=== PATIENT | female | born 1960 | race Caucasian/White ===

== ENCOUNTER 2017-03-31 13:05 | Emergency (ER) | payer BC ==
--- NOTE | 2017-03-31 17:34 | RAD ---
THREE VIEWS OF THE LEFT FOOT INDICATION: Rule out foreign body in the mid-foot. FINDINGS: No acute fracture or subluxation is evident. No definite radiopaque foreign body is noted. There is soft tissue swelling surrounding the forefoot. IMPRESSION: Soft tissue swelling without radiopaque foreign body. POS: [facility]
== END 2017-03-31 17:17 | disposition home or self-care (01) ==
LOC: MADERS 13:05
DX: M25.572 Pain in left ankle and joints of left foot (principal); Z79.891 Long term (current) use of opiate analgesic; Z79.899 Other long term (current) drug therapy

== ENCOUNTER 2017-04-02 11:46 | Emergency (ER) | payer BC ==
[2017-04-02] MEDS ORDERED: Adacel (T-DAP) 0.5 ML VIAL ONE (14:03)
== END 2017-04-02 14:21 | disposition home or self-care (01) ==
LOC: MADERS 11:46
DX: L03.032 Cellulitis of left toe (principal); G89.29 Other chronic pain; F32.9 Major depressive disorder, single episode, unspecified; F17.210 Nicotine dependence, cigarettes, uncomplicated; Z79.891 Long term (current) use of opiate analgesic; Z79.899 Other long term (current) drug therapy
CPT/HCPCS: 90471; 90715

== ENCOUNTER 2017-11-21 10:40 | Emergency (ER) | payer BC ==
[2017-11-21] MEDS ORDERED: Dexamethasone 4 MG TAB ONE (12:51)
[2017-11-21] MEDS ORDERED: Acetaminophen 500 MG TAB ONE (12:51)
[2017-11-21] MEDS ORDERED: Famotidine 20 MG TAB ONE (12:51)
== END 2017-11-21 13:10 | disposition home or self-care (01) ==
LOC: MADERS 10:40
DX: M19.011 Primary osteoarthritis, right shoulder (principal); F32.9 Major depressive disorder, single episode, unspecified; F17.210 Nicotine dependence, cigarettes, uncomplicated; Z79.899 Other long term (current) drug therapy
CPT/HCPCS: 99283; J8540

== ENCOUNTER 2018-02-20 08:21 | Emergency (ER) | payer BC ==
--- NOTE | 2018-02-20 09:10 | RAD ---
RADIOGRAPH LEFT SHOULDER THREE VIEWS: Date: 02-20-18 History: 57-year-old female with left shoulder pain for three days without trauma. FINDINGS: No fracture or dislocation. Grade II AC joint sprain, with mild to moderate degenerative changes. Nor mal appearance of the glenohumeral joint. No HADD calcification. IMPRESSION: 1. Grade II acromioclavicular joint sprain of unknown age. 2. 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 POS: [facility]
== END 2018-02-20 09:38 | disposition home or self-care (01) ==
LOC: MADERS 08:21
DX: S43.402A Unspecified sprain of left shoulder joint, initial encounter (principal); M19.90 Unspecified osteoarthritis, unspecified site; F32.9 Major depressive disorder, single episode, unspecified; F17.210 Nicotine dependence, cigarettes, uncomplicated; Z79.899 Other long term (current) drug therapy; X50.1XXA Overexertion from prolonged static or awkward postures, initial encounter
CPT/HCPCS: 93005

== ENCOUNTER 2018-05-22 11:27 | Emergency (ER) | payer BC ==
[2018-05-22] MEDS ORDERED: Morphine 4 MG/ML VIAL ONE (11:55)
[2018-05-22 11:56] LABS: Bilirubin Negative (Negative); Blood, Urine Negative (Negative); Clarity Slightly Cloudy (Clear); Glucose, Urine (Dipstick) Negative (Negative); Leukocyte Negative (Negative); Nitrite Positive (Negative); Protein, Urine (Dipstick) Trace mg/dL (Neg-Trace); Specific Gravity, Urine 1.015 (1.005-1.030); Urobilinogen 0.2 mg/dL (0.2-1.0)
[2018-05-22] MEDS ORDERED: Ketorolac Tromethamine 30 MG/ML VIAL ONE (11:56)
[2018-05-22] MEDS ORDERED: Ondansetron PF 4 MG/2 ML Vial ONE (11:56)
[2018-05-22] MEDS ORDERED: Sodium Chloride 0.9% 500 ML ONE (11:56)
[2018-05-22 12:09] LABS: #Basophils 0.1 thou/uL (0.0-0.2); #Eosinphils 0.1 thou/uL (0.0-0.7); #Lymphocytes 2.4 thou/uL (1.20-3.40); #Monocytes 0.5 thou/uL (0.11-0.59); #Neutrophils 4.2 thou/uL (1.40-6.50); %Eosinophils 1.7 % (0.0-10.0); %Lymphocytes 32.6 % (21.0-51.0); %Monocytes 6.7 % (0.0-10.0); Hemoglobin 16.8 g/dL (12.0-16.0); Mean Corpuscular HGB CONC 32.6 g/dL (32.0-36.0); Mean Corpuscular Hemoglobin 32.4 pg (27.0-31.0); Mean Corpuscular Volume 99.4 fL (78.0-98.0); Mean Platelet Volume 6.7 fL (7.4-10.4); Platelet Count 402 thou/uL (130-400); RBC Distribution Width 12.2 % (11.5-14.5); Red Blood Cell (RBC) Count 5.19 mill/uL (4.20-5.40); White Blood Cell (WBC) Count 7.3 thou/uL (4.8-10.8)
[2018-05-22 12:11] LABS: Bacteria/HPF 2+ HPF (None Seen); RBC/HPF 0-3 HPF (0-3); Squamous Epithelial 0-3 HPF (0-3)
[2018-05-22] MEDS ORDERED: cefTRIAXone\\ROCEPHIN 1 GM VIAL ONE (12:39)
--- NOTE | 2018-05-22 12:50 | CT ---
CT ABDOMEN AND PELVIS WITHOUT CONTRAST: HISTORY: Right flank pain. FINDINGS: Each renal collecting system, ureter, and urinary bladder are decompressed. A 0.2 cm calcification i s present within a nondilated calyx at the interpolar level of the left kidney. Lack of contrast limits evaluation for other abnormalities. The gallbladder is surgically absent. T here is calcification within the arterial structures. No evidence of bowel obstruction or inflammati on. A lobular, well circumscribed, fluid density mass at the superior pole left kidney has the appea kary of a cyst that measures up to 3.8 cm. IMPRESSION: 1. Tiny, nonobstructing left renal calculus. 2. Atherosclerosis. POS: [facility]
[2018-05-22 12:52] LABS: Anion Gap 13 mmol/L (10-20); BUN (Urea Nitrogen) 10 mg/dL (9.8-20.1); Calc. Creatinine Clearance 0 mL/min (70-130); Calcium 10.1 mg/dL (7.8-10.44); Carbon Dioxide 31 mmol/L (22-29); Chloride 103 mmol/L (98-107); Estimated GFR-MDRD 73; Glucose 105 mg/dL (70-105); Potassium 4.4 mmol/L (3.5-5.1); Sodium 143 mmol/L (136-145)
== END 2018-05-22 13:48 | disposition home or self-care (01) ==
LOC: MADERS 11:27
DX: N20.0 Calculus of kidney (principal); F32.9 Major depressive disorder, single episode, unspecified; F17.210 Nicotine dependence, cigarettes, uncomplicated; M19.90 Unspecified osteoarthritis, unspecified site; Z79.899 Other long term (current) drug therapy; Z79.891 Long term (current) use of opiate analgesic
CPT/HCPCS: 74176; 80048; 81003; 81015; 85025; 87077; 87086; 87186; 96361; 96374; 96375; J0696; J1885; J2270; J2405; J7050

== ENCOUNTER 2018-05-25 11:09 | Emergency (ER) | payer BC ==
[~2018-05-25 11:09] MED LIST: Sodium Chloride 0.9% 1,000 ML BAG ONE
[2018-05-25] MEDS ORDERED: Ketorolac Tromethamine 30 MG/ML VIAL ONE (11:56)
[2018-05-25] MEDS ORDERED: Iopamidol 370 76% 100 ML VIAL ONE (12:02)
[2018-05-25 12:12] LABS: ALT (SGPT) 197 U/L (8-55); AST (SGOT) 278 U/L (5-34); Albumin 5.2 g/dL (3.5-5.0); Alkaline Phosphatase 197 U/L (40-150); Anion Gap 18 mmol/L (10-20); BUN (Urea Nitrogen) 12 mg/dL (9.8-20.1); Bilirubin, Total 0.3 mg/dL (0.2-1.2); Calc. Creatinine Clearance 0 mL/min (70-130); Calcium 9.9 mg/dL (7.8-10.44); Carbon Dioxide 29 mmol/L (22-29); Chloride 98 mmol/L (98-107); Estimated GFR-MDRD 48; Globulin 3.2 g/dL (2.4-3.5); Glucose 90 mg/dL (70-105); Lipase 18 U/L (8-78); Potassium 3.6 mmol/L (3.5-5.1); Protein, Total 8.4 g/dL (6.0-8.3); Sodium 141 mmol/L (136-145)
[2018-05-25 12:13] LABS: Band 6 % (5-11); Hemoglobin 16.3 g/dL (12.0-16.0); Lymphocytes 43 % (21-51); Mean Corpuscular Hemoglobin 32.5 pg (27.0-31.0); Mean Corpuscular Volume 98.4 fL (78.0-98.0); Mean Platelet Volume 6.7 fL (7.4-10.4); Monocytes 4 % (0-10); Neutrophil 47 % (42-75); Platelet Count 274 thou/uL (130-400); Platelet Morphology Comment Appears Adequate; RBC Distribution Width 12.3 % (11.5-14.5); Red Blood Cell (RBC) Count 5.01 mill/uL (4.20-5.40); White Blood Cell (WBC) Count 3.9 thou/uL (4.8-10.8)
[2018-05-25 12:48] LABS: Bilirubin Negative (Negative); Blood, Urine Negative (Negative); Clarity Clear (Clear); Glucose, Urine (Dipstick) Negative (Negative); Leukocyte Negative (Negative); Nitrite Negative (Negative); Protein, Urine (Dipstick) Negative (Neg-Trace); Urobilinogen 0.2 mg/dL (0.2-1.0); pH, Urine 5.5 (5.0-9.0)
[2018-05-25 12:49] LABS: Specific Gravity, Urine 1.005 (1.002-1.036)
--- NOTE | 2018-05-25 13:35 | CT ---
ABDOMEN CT WITH CONTRAST PELVIC CT WITH CONTRAST: HISTORY: Evaluate for appendicitis. Pain. COMPARISON: Stone protocol CT performed 3 days ago 05/22/2018. FINDINGS: ABDOMEN CT: Atelectasis or infiltrate in the left lower lobe. Dilatation of the intra- and extrahepatic biliary system due to surgically absent gallbladder. Patent portal vein. Liver, spleen, pancreas, and adre nal glands have appropriate enhancement. No gastrohepatic, retrocrural, or periportal lymphadenopathy. No mesenteric mass, lymphadenopathy, free air, or free fluid. A 3.4 x 3.2 cm cyst emanating from the upper pole of the left kidney. Bilaterally, no obstructive ur opathy. Limited evaluation of the alimentary canal by lack of oral contrast. No evidence of small bowel obst ruction. Ileocecal junction is normal. Normal-caliber appendix. Colon is unremarkable. Minimal di verticulum in the sigmoid colon. No diverticulitis. CT PELVIS: No mass, lymphadenopathy, free air, or free fluid. Unremarkable urinary bladder. Surgically absent uterus. IMPRESSION: 1. No evidence of appendicitis. 2. Possible infiltrate or atelectasis in the left lower lobe. POS: [facility]
== END 2018-05-25 13:19 | disposition home or self-care (01) ==
LOC: MADERS 11:09
DX: R10.31 Right lower quadrant pain (principal); R79.89 Other specified abnormal findings of blood chemistry; F32.9 Major depressive disorder, single episode, unspecified; F17.210 Nicotine dependence, cigarettes, uncomplicated; Z79.899 Other long term (current) drug therapy
CPT/HCPCS: 74177; 80053; 81003; 83690; 85025; 96361; 96374; J1885; J7050; Q9967

== ENCOUNTER 2019-07-23 09:11 | Emergency (ER) | payer BC ==
[2019-07-23] MEDS ORDERED: Ketorolac Tromethamine 30 MG/ML VIAL ONE (10:03)
[2019-07-23] MEDS ORDERED: Ondansetron PF 4 MG/2 ML Vial ONE (10:03)
[2019-07-23] MEDS ORDERED: Sodium Chloride 0.9% 1,000 ML ONE (10:03)
[2019-07-23 10:34] LABS: #Basophils 0.1 thou/uL (0.0-0.2); #Eosinphils 0.3 thou/uL (0.0-0.7); #Lymphocytes 1.6 thou/uL (1.20-3.40); #Monocytes 0.4 thou/uL (0.11-0.59); #Neutrophils 4.8 thou/uL (1.40-6.50); %Basophils 1.1 % (0.0-1.0); %Lymphocytes 21.7 % (21.0-51.0); %Monocytes 6.2 % (0.0-10.0); %Neutrophils 67.1 % (42.0-75.0); Hemoglobin 14.7 g/dL (12.0-16.0); Mean Corpuscular HGB CONC 31.7 g/dL (32.0-36.0); Mean Corpuscular Volume 94.8 fL (78.0-98.0); Mean Platelet Volume 7.1 fL (7.4-10.4); Platelet Count 308 thou/uL (130-400); RBC Distribution Width 11.5 % (11.5-14.5); White Blood Cell (WBC) Count 7.1 thou/uL (4.8-10.8)
[2019-07-23 10:48] LABS: ALT (SGPT) 20 U/L (8-55); AST (SGOT) 20 U/L (5-34); Albumin 4.4 g/dL (3.5-5.0); Alkaline Phosphatase 135 U/L (40-110); Anion Gap 17 mmol/L (10-20); BUN (Urea Nitrogen) 10 mg/dL (9.8-20.1); Bilirubin, Total 0.6 mg/dL (0.2-1.2); Calc. Creatinine Clearance 0 mL/min (70-130); Calcium 9.8 mg/dL (7.8-10.44); Carbon Dioxide 27 mmol/L (22-29); Chloride 96 mmol/L (98-107); Estimated GFR-MDRD 69; Globulin 3.5 g/dL (2.4-3.5); Glucose 93 mg/dL (70-105); Lipase 15 U/L (8-78); Protein, Total 7.9 g/dL (6.0-8.3); Sodium 136 mmol/L (136-145)
[2019-07-23 11:06] LABS: Bilirubin Small (Negative); Blood, Urine Negative (Negative); Clarity Clear (Clear); Glucose, Urine (Dipstick) Negative (Negative); Leukocyte Trace (Negative); Nitrite Negative (Negative); Protein, Urine (Dipstick) Trace mg/dL (Neg-Trace)
[2019-07-23 11:11] LABS: RBC/HPF 0-3 HPF (0-3)
[2019-07-23 11:12] LABS: Bacteria/HPF 1+ HPF (None Seen)
--- NOTE | 2019-07-23 11:21 | CT ---
EXAM: CT ABDOMEN AND PELVIS HISTORY: Diffuse abdominal pain, radiating to the back. COMPARISON: 05/24/2018, 05/22/2018 Procedure: Multiple contiguous axial images were obtained and a CT of the abdomen and pelvis with IV contrast. C oronal reformats were performed. FINDINGS: Lower Chest: within normal limits. Vessels: Stable atherosclerosis. No aneurysm of the aorta Heart: Stable heart size Abdomen: Portal vein:Patent Gallbladder: Surgically absent. Persistent dilatation of the intra and extrahepatic biliary system Liver: within normal limits. Pancreas: within normal limits. Spleen: within normal limits. Adrenals: within normal limits. Kidneys: Symmetric enhancement. No obstructive uropathy. Stable right renal cyst. Peritoneum: No ascites or free air, no fluid collection. Bowel: Evaluation by the absence of oral contrast. There are mildly dilated proximal small bowel loop s with mucosal thickening. There is long segment mucosal thickening with mild pericolonic fat stranding involving the distal sigmoid colon and rectum. Diverticulosis is noted. Normal caliber appe ndix. Mesentery and Retroperitoneum: No enlarged mesenteric or retroperitoneal lymph nodes. Abdominal Wall: within normal limits. Pelvis: Reproductive Organs: Reproductive organs are unremarkable. Pelvis: No mass, lymphadenopathy, free air or free fluid. Bladder: within normal limits. Bones: within normal limits. IMPRESSION: 1. Proximal small bowel loop enteritis. 2. Possible colitis/proctitis involving the distal sigmoid colon and rectum. There are diverticula pr esent. However, there does not appear to be evidence of diverticulitis. Correlate for infectious or inflammatory process.
[2019-07-23] MEDS ORDERED: Iopamidol 370 76% 100 ML VIAL ONE (13:28)
== END 2019-07-23 12:33 | disposition home or self-care (01) ==
LOC: MADERS 09:11
DX: K57.92 Diverticulitis of intestine, part unspecified, without perforation or abscess without bleeding (principal); K52.9 Noninfective gastroenteritis and colitis, unspecified; K21.9 Gastro-esophageal reflux disease without esophagitis; I10 Essential (primary) hypertension; F41.9 Anxiety disorder, unspecified; F32.9 Major depressive disorder, single episode, unspecified; F17.210 Nicotine dependence, cigarettes, uncomplicated; Z79.899 Other long term (current) drug therapy
CPT/HCPCS: 36415; 74177; 80053; 81003; 81015; 83605; 83690; 85025; 96361; 96374; 96375; J1885; J2405; J7050; Q9967

== ENCOUNTER 2020-02-21 12:07 | Emergency (ER) | payer BC ==
[2020-02-21 13:05] LABS: Bilirubin Negative (Negative); Blood, Urine Negative (Negative); Glucose, Urine (Dipstick) Negative (Negative); Ketone, Urine Negative (Negative); Leukocyte Trace (Negative); Nitrite Negative (Negative); Protein, Urine (Dipstick) Negative (Neg-Trace); Urobilinogen 0.2 mg/dL (Less than 2); pH, Urine 5.5 (5.0-9.0)
[2020-02-21 13:07] LABS: Clarity Hazy (Clear); Specific Gravity, Urine 1.021 (1.002-1.036)
--- NOTE | 2020-02-21 13:08 | CT ---
CT abdomen and pelvis noncontrast HISTORY: Bilateral flank pain. COMPARISON: 07/23/2019. FINDINGS: Each renal collecting system, ureter, and urinary bladder are decompressed without stone ev ident. There is calcification within the arterial structures. Gallbladder surgically absent. A 3.6 cm cortic al cyst at the superior pole of the left kidney is unchanged. Lack of contrast limits evaluation of the soft tissues. No evidence of bowel obstruction or inflammat ion. Appendix not inflamed. There are degenerative changes of the lumbar spine. IMPRESSION : No acute abnormalities are demonstrated.
[2020-02-21 13:10] LABS: #Basophils 0.1 thou/uL (0.0-0.2); #Eosinphils 0.1 thou/uL (0.0-0.7); #Lymphocytes 2.5 thou/uL (1.20-3.40); #Monocytes 0.6 thou/uL (0.11-0.59); #Neutrophils 6.1 thou/uL (1.40-6.50); %Basophils 1.1 % (0.0-1.0); %Eosinophils 1.3 % (0.0-10.0); %Lymphocytes 26.3 % (21.0-51.0); %Neutrophils 65.4 % (42.0-75.0); Hemoglobin 14.4 g/dL (12.0-16.0); Mean Corpuscular HGB CONC 33.2 g/dL (32.0-36.0); Mean Corpuscular Hemoglobin 32.4 pg (27.0-31.0); Mean Corpuscular Volume 97.4 fL (78.0-98.0); Mean Platelet Volume 6.6 fL (7.4-10.4); Platelet Count 366 thou/uL (130-400); RBC Distribution Width 11.8 % (11.5-14.5); Red Blood Cell (RBC) Count 4.45 mill/uL (4.20-5.40); White Blood Cell (WBC) Count 9.4 thou/uL (4.8-10.8)
[2020-02-21 13:14] LABS: Bacteria/HPF 1+ HPF (None Seen); RBC/HPF 0-3 HPF (0-3)
[2020-02-21 13:15] LABS: Calcium Oxalate Crystals 3+ HPF (None Seen); Mucous/LPF 2+ LPF (<2+)
[2020-02-21 13:18] LABS: ALT (SGPT) 11 U/L (8-55); AST (SGOT) 12 U/L (5-34); Albumin 4.3 g/dL (3.5-5.0); Alkaline Phosphatase 105 U/L (40-110); Anion Gap 17 mmol/L (10-20); BUN (Urea Nitrogen) 9 mg/dL (9.8-20.1); Bilirubin, Total 0.2 mg/dL (0.2-1.2); Calc. Creatinine Clearance 0 mL/min (70-130); Calcium 9.4 mg/dL (7.8-10.44); Carbon Dioxide 26 mmol/L (22-29); Chloride 100 mmol/L (98-107); Estimated GFR-MDRD 74; Globulin 2.6 g/dL (2.4-3.5); Glucose 109 mg/dL (70-105); Potassium 3.8 mmol/L (3.5-5.1); Protein, Total 6.9 g/dL (6.0-8.3); Sodium 139 mmol/L (136-145)
[2020-02-21] MEDS ORDERED: Ketorolac Tromethamine 30 MG/ML VIAL ONE (13:23)
[2020-02-21] MEDS ORDERED: Ondansetron PF 4 MG/2 ML Vial ONE (13:23)
[2020-02-21] MEDS ORDERED: Ciprofloxacin 500 MG TAB ONE (13:46)
== END 2020-02-21 13:50 | disposition home or self-care (01) ==
LOC: MADERS 12:07
DX: N39.0 Urinary tract infection, site not specified (principal); K21.9 Gastro-esophageal reflux disease without esophagitis; I10 Essential (primary) hypertension; M19.90 Unspecified osteoarthritis, unspecified site; F41.9 Anxiety disorder, unspecified; F32.9 Major depressive disorder, single episode, unspecified; F17.210 Nicotine dependence, cigarettes, uncomplicated; Z79.1 Long term (current) use of non-steroidal anti-inflammatories (NSAID); Z79.899 Other long term (current) drug therapy; Z79.891 Long term (current) use of opiate analgesic
CPT/HCPCS: 36415; 74176; 80053; 81003; 81015; 83605; 85025; 87040; 87086; 96374; 96375; J1885; J2405

== ENCOUNTER 2020-12-11 13:30 | Emergency (ER) | payer BC ==
[~2020-12-11 13:30] MED LIST changes: +Iopamidol 370 76% 100 ML VIAL ONE; -Sodium Chloride 0.9% 1,000 ML BAG ONE
[2020-12-11 14:13] LABS: #Basophils 0.1 thou/uL (0.0-0.2); #Eosinphils 0.1 thou/uL (0.0-0.7); #Lymphocytes 2.4 thou/uL (1.20-3.40); #Monocytes 0.5 thou/uL (0.11-0.59); #Neutrophils 5.1 thou/uL (1.40-6.50); %Basophils 1.4 % (0.0-1.0); %Eosinophils 1.3 % (0.0-10.0); %Lymphocytes 29.7 % (21.0-51.0); %Monocytes 5.5 % (0.0-10.0); %Neutrophils 62.1 % (42.0-75.0); Hemoglobin 15.9 g/dL (12.0-16.0); Mean Corpuscular HGB CONC 31.2 g/dL (32.0-36.0); Mean Corpuscular Hemoglobin 30.7 pg (27.0-31.0); Mean Corpuscular Volume 98.4 fL (78.0-98.0); Mean Platelet Volume 6.6 fL (7.4-10.4); Platelet Count 411 thou/uL (130-400); RBC Distribution Width 13.3 % (11.5-14.5); Red Blood Cell (RBC) Count 5.17 mill/uL (4.20-5.40); White Blood Cell (WBC) Count 8.2 thou/uL (4.8-10.8)
[2020-12-11 14:19] LABS: Base Excess-Venous 0.9 mmol/L (-2.0 to 3.0); Bicarbonate (HCO3v) 28.2 mmol/L (22.0-28.0); CO2 Tension (PvCO2) 53.5 mmHg (42.0-51.0); Calcium, Ionized 1.11 mmol/L (1.15-1.33); Chloride 108 mmol/L (98-107); Hemoglobin - Calc 17.5 g/dL (12.0-16.0); Potassium 3.7 mmol/L (3.5-5.1); Sodium 143 mmol/L (138-145); T. Carbon Dioxide 29.9 mmol/L (22.0-28.0); vO2 Saturation-calc 93.8 % (60.0-85.0)
[2020-12-11 14:30] LABS: ALT (SGPT) 10 U/L (8-55); AST (SGOT) 17 U/L (5-34); Albumin 4.2 g/dL (3.5-5.0); Alkaline Phosphatase 122 U/L (40-110); Anion Gap 19 mmol/L (10-20); BUN (Urea Nitrogen) 7 mg/dL (9.8-20.1); Bilirubin, Total 0.2 mg/dL (0.2-1.2); Calc. Creatinine Clearance 0 mL/min (70-130); Calcium 9.9 mg/dL (7.8-10.44); Carbon Dioxide 21 mmol/L (22-29); Chloride 104 mmol/L (98-107); Glucose 155 mg/dL (70-105); Lipase 15 U/L (8-78); Potassium 3.8 mmol/L (3.5-5.1); Protein, Total 7.2 g/dL (6.0-8.3); Sodium 140 mmol/L (136-145)
[2020-12-11] MEDS ORDERED: Ondansetron PF 4 MG/2 ML Vial ONE (14:58)
[2020-12-11] MEDS ORDERED: Morphine 4 MG/ML VIAL ONE ×3 (14:58→22:27)
[2020-12-11] MEDS ORDERED: Sodium Chloride 0.9% 1,000 ML ONE ×2 (14:58→17:45)
[2020-12-11 17:00] LABS: Lactic Acid 1.3 mmol/L (0.5-2.2)
[2020-12-11] MEDS ORDERED: Sodium Chloride 0.9% 100 ML ONE (17:45)
[2020-12-11] MEDS ORDERED: Cefepime 1 GM VIAL ONE (17:45)
[2020-12-11 18:16] LABS: Bilirubin Negative (Negative); Blood, Urine Negative (Negative); Glucose, Urine (Dipstick) Negative (Negative); Ketone, Urine Negative (Negative); Leukocyte Trace (Negative); Nitrite Negative (Negative); Protein, Urine (Dipstick) Negative (Neg-Trace); Urobilinogen 0.2 mg/dL (Less than 2)
[2020-12-11 18:19] LABS: Clarity Hazy (Clear); Specific Gravity, Urine 1.005 (1.002-1.036)
[2020-12-11 18:21] LABS: Bacteria/HPF Rare-Few HPF (None Seen); RBC/HPF None Seen HPF (0-3)
[2020-12-11 19:06] LABS: SARS-CoV-2 NAA Rapid Test Not Detected (NotDetected)
== END 2020-12-11 23:42 | disposition short-term general hospital (02) ==
LOC: MADERS 13:30
DX: K83.1 Obstruction of bile duct (principal); K21.9 Gastro-esophageal reflux disease without esophagitis; I10 Essential (primary) hypertension; M19.90 Unspecified osteoarthritis, unspecified site; F17.210 Nicotine dependence, cigarettes, uncomplicated; Z20.822 Contact with and (suspected) exposure to COVID-19; Z79.899 Other long term (current) drug therapy
CPT/HCPCS: 36415; 74177; 80053; 81003; 81015; 82330; 82803; 83605; 83690; 85025; 93005; 96365; 96375; 96376; J0692; J2270; J2405; J3490; J7050; Q9967; U0002

== ENCOUNTER 2021-06-27 14:39 | Outpatient (CLI) | payer BC ==
[2021-06-27 15:01] LABS: #Basophils 0.2 thou/uL (0.0-0.2); #Eosinphils 0.3 thou/uL (0.0-0.7); #Lymphocytes 3.4 thou/uL (1.20-3.40); #Monocytes 0.6 thou/uL (0.11-0.59); #Neutrophils 3.6 thou/uL (1.40-6.50); %Basophils 1.9 % (0.0-1.0); %Eosinophils 3.3 % (0.0-10.0); %Lymphocytes 42.4 % (21.0-51.0); %Neutrophils 45.4 % (42.0-75.0); Hemoglobin 14.7 g/dL (12.0-16.0); Mean Corpuscular HGB CONC 31.6 g/dL (32.0-36.0); Mean Corpuscular Hemoglobin 29.9 pg (27.0-31.0); Mean Corpuscular Volume 94.6 fL (78.0-98.0); Mean Platelet Volume 5.7 fL (7.4-10.4); Platelet Count 403 thou/uL (130-400)
[2021-06-27 15:04] LABS: INR-International Normal Ratio 0.8; Prothrombin Time 11.4 sec (12.0-14.7)
[2021-06-27 15:05] LABS: Bilirubin Small (Negative); Blood, Urine Negative (Negative); Clarity Clear (Clear); Glucose, Urine (Dipstick) Negative (Negative); Ketone, Urine Negative (Negative); Leukocyte Negative (Negative); Nitrite Negative (Negative); Protein, Urine (Dipstick) Trace mg/dL (Neg-Trace); Urobilinogen 0.2 mg/dL (Less than 2)
[2021-06-27 15:11] LABS: ALT (SGPT) 51 U/L (8-55); AST (SGOT) 26 U/L (5-34); Albumin 4.4 g/dL (3.5-5.0); Alkaline Phosphatase 150 U/L (40-110); Anion Gap 14 mmol/L (10-20); BUN (Urea Nitrogen) 8 mg/dL (9.8-20.1); Bilirubin, Total 0.3 mg/dL (0.2-1.2); Calc. Creatinine Clearance 0 mL/min (70-130); Calcium 9.8 mg/dL (7.8-10.44); Carbon Dioxide 27 mmol/L (22-29); Chloride 103 mmol/L (98-107); Globulin 2.8 g/dL (2.4-3.5); Glucose 107 mg/dL (70-105); Potassium 4.4 mmol/L (3.5-5.1); Protein, Total 7.2 g/dL (6.0-8.3); Sodium 140 mmol/L (136-145)
[2021-06-27 15:28] LABS: Bacteria/HPF Rare-Few HPF (None Seen); RBC/HPF 0-3 HPF (0-3); WBC/HPF 0-3 HPF (0-3)
== END 2021-06-27 14:40 | disposition home or self-care (01) ==
LOC: MADLAB 14:39
PROVIDERS: ATTEND Family Medicine
DX: Z01.818 Encounter for other preprocedural examination (principal)
CPT/HCPCS: 36415; 71046; 80053; 81001; 85025; 85610; 93005; 93010

== ENCOUNTER 2021-09-02 16:18 | Emergency (ER) | payer BC ==
[~2021-09-02 16:18] MED LIST changes: +Sodium Chloride 0.9% 1,000 ML BAG ONE
[2021-09-02] MEDS ORDERED: Ondansetron PF 4 MG/2 ML Vial ONE ×2 (17:33→21:05)
[2021-09-02] MEDS ORDERED: Morphine 4 MG/ML VIAL ONE ×2 (17:33→20:34)
[2021-09-02 17:56] LABS: #Basophils 0.1 thou/uL (0.0-0.2); #Eosinphils 0.2 thou/uL (0.0-0.7); #Lymphocytes 2.7 thou/uL (1.20-3.40); #Monocytes 0.7 thou/uL (0.11-0.59); #Neutrophils 3.9 thou/uL (1.40-6.50); %Basophils 1.9 % (0.0-1.0); %Eosinophils 2.8 % (0.0-10.0); %Lymphocytes 35.3 % (21.0-51.0); %Monocytes 9.5 % (0.0-10.0); %Neutrophils 50.5 % (42.0-75.0); Hemoglobin 14.4 g/dL (12.0-16.0); Mean Corpuscular HGB CONC 30.9 g/dL (32.0-36.0); Mean Corpuscular Hemoglobin 29.9 pg (27.0-31.0); Mean Corpuscular Volume 96.6 fL (78.0-98.0); Mean Platelet Volume 7.2 fL (7.4-10.4); Platelet Count 442 thou/uL (130-400); RBC Distribution Width 13.7 % (11.5-14.5); Red Blood Cell (RBC) Count 4.82 mill/uL (4.20-5.40); White Blood Cell (WBC) Count 7.7 thou/uL (4.8-10.8)
[2021-09-02 18:09] LABS: ALT (SGPT) 16 U/L (8-55); AST (SGOT) 34 U/L (5-34); Albumin 4.3 g/dL (3.5-5.0); Alkaline Phosphatase 150 U/L (40-110); Anion Gap 19 mmol/L (10-20); BUN (Urea Nitrogen) 12 mg/dL (9.8-20.1); Bilirubin, Total 0.3 mg/dL (0.2-1.2); Calc. Creatinine Clearance 0 mL/min (70-130); Calcium 10.1 mg/dL (7.8-10.44); Carbon Dioxide 25 mmol/L (22-29); Chloride 101 mmol/L (98-107); Globulin 3.3 g/dL (2.4-3.5); Glucose 126 mg/dL (70-105); Lipase 564 U/L (8-78); Potassium 3.8 mmol/L (3.5-5.1); Protein, Total 7.6 g/dL (6.0-8.3); Sodium 141 mmol/L (136-145)
[2021-09-02 21:58] LABS: SARS-CoV-2 NAA Rapid Test Not Detected (NotDetected)
[2021-09-03] MEDS ORDERED: Sodium Chloride 0.9% 1,000 ML ONE (00:16)
[2021-09-03] MEDS ORDERED: Morphine 2 MG/ML VIAL ONE (00:25)
== END 2021-09-03 01:33 | disposition short-term general hospital (02) ==
LOC: MADERS 16:18
DX: K85.90 Acute pancreatitis without necrosis or infection, unspecified (principal); Z20.822 Contact with and (suspected) exposure to COVID-19; K21.9 Gastro-esophageal reflux disease without esophagitis; I10 Essential (primary) hypertension; M19.90 Unspecified osteoarthritis, unspecified site; F17.210 Nicotine dependence, cigarettes, uncomplicated; Z79.899 Other long term (current) drug therapy
CPT/HCPCS: 74177; 80053; 83605; 83690; 85025; 93005; 96374; 96375; 96376; J2270; J2405; J7050; Q9967; U0002

== ENCOUNTER 2022-09-19 16:36 | Outpatient (CLI) | payer BC ==
[~2022-09-19 16:36] MED LIST changes: -Sodium Chloride 0.9% 1,000 ML BAG ONE
== END 2022-09-19 16:37 | disposition home or self-care (01) ==
LOC: MADCT 16:36
PROVIDERS: ATTEND Internal Medicine
DX: K86.1 Other chronic pancreatitis (principal)
CPT/HCPCS: 36415; 74177; 82565; Q9967

== ENCOUNTER 2022-10-05 14:58 | Outpatient (CLI) | payer BC | END 2022-10-05 14:59 | disposition home or self-care (01) | LOC: MADRAD 14:58 | PROVIDERS: ATTEND Family Medicine | DX: Z01.818 Encounter for other preprocedural examination (principal) | CPT/HCPCS: 71046; 93005; 93010 ==

== ENCOUNTER 2025-01-15 10:19 | Outpatient (CLI) | payer BC ==
[2025-01-15 10:58] LABS: #Basophils 0.1 thou/uL (0.0-0.2); #Eosinophils 0.2 thou/uL (0.0-0.7); #Lymphocytes 1.7 thou/uL (1.20-3.40); #Monocytes 0.5 thou/uL (0.11-0.59); #Neutrophils 3.9 thou/uL (1.40-6.50); %Basophils 1.5 % (0.0-1.0); %Eosinophils 3.3 % (0.0-10.0); %Lymphocytes 27.2 % (21.0-51.0); %Monocytes 7.5 % (0.0-10.0); %Neutrophils 60.5 % (42.0-75.0); Hematocrit 40.2 % (36.0-47.0); Hemoglobin 13.0 g/dL (12.0-16.0); Mean Corpuscular Hemoglobin 31.0 pg (27.0-31.0); Mean Corpuscular Volume 95.7 fl (78.0-98.0); Platelet Count 416 10x3/uL (130-400); Red Blood Cell (RBC) Count 4.21 mill/uL (4.20-5.40); White Blood Cell (WBC) Count 6.4 10x3/uL (4.8-10.8)
[2025-01-15 11:06] LABS: Cardiac Risk 3.8 (Less than 4.5); Cholesterol 196.0 mg/dl (< 200 Desired); HDL Cholesterol 52.0 mg/dL (>60 Neg Risk); LDL Cholesterol, Calculated 129.0 mg/dL; Triglycerides 73.0 mg/dL (Less than 150)
[2025-01-15 11:08] LABS: ALT (SGPT) 9 U/L (Less than 34); AST (SGOT) 18 U/L (11-34); Albumin 4.2 g/dL (3.1-4.5); Alkaline Phosphatase 70 U/L (40-110); Anion Gap 16 mmol/L (10-20); BUN (Urea Nitrogen) 9 mg/dL (9.8-20.1); Bilirubin, Total 0.3 mg/dL (0.3-1.2); Calc. Creatinine Clearance 0 mL/min (70-130); Calcium 9.3 mg/dL (7.8-10.44); Carbon Dioxide 26 mmol/L (23-31); Chloride 103 mmol/L (98-107); Globulin 3.0 g/dL (2.4-3.5); Glucose 101 mg/dL (80-115); Lipase 18 U/L (8-78); Potassium 4.2 mmol/L (3.5-5.1); Sodium 141 mmol/L (136-145)
[2025-01-15 14:27] LABS: Thyroid Stimulating Hormone 0.6466 uIU/mL (0.35-4.94)
[2025-01-15 16:00] LABS: Amylase 50 U/L (25-125)
[2025-01-15 16:32] LABS: HIV (1/2) Antibody/Antigen NONREACTIVE (NonReactive); HIV 1/2 INDEX 0.06 S/CO (<1.00)
[2025-01-15 16:46] LABS: Free T4 (Free Thyroxine) 0.85 ng/dL (0.70-1.48)
[2025-01-16 14:14] LABS: Thyroid Peroxidase IgG Ab Less than 4.0 IU/mL (<25 Normal)
[2025-01-17 14:38] LABS: Hep C PCR-Quant HCV Not Detected IU/mL (.)
== END 2025-01-15 10:20 | disposition home or self-care (01) ==
LOC: MADLAB 10:19
PROVIDERS: ATTEND Nurse Practitioner Family
DX: Z11.4 Encounter for screening for human immunodeficiency virus [HIV] (principal); Z11.59 Encounter for screening for other viral diseases; K86.1 Other chronic pancreatitis; I10 Essential (primary) hypertension
CPT/HCPCS: 36415; 80053; 80061; 82150; 83690; 84439; 84443; 84481; 85025; 86376; 87389; 87522

== ENCOUNTER 2025-02-20 10:55 | Emergency (ER) | payer BC | END 2025-02-20 13:13 | disposition home or self-care (01) | LOC: MADERS 10:55 | DX: S92.354A Nondisplaced fracture of fifth metatarsal bone, right foot, initial encounter for closed fracture (principal); I10 Essential (primary) hypertension; F17.210 Nicotine dependence, cigarettes, uncomplicated; X50.1XXA Overexertion from prolonged static or awkward postures, initial encounter | CPT/HCPCS: 99283 ==